=== PATIENT | male | born 1995 | race Caucasian/White ===

== ENCOUNTER 2016-07-05 00:30 | Emergency (ER) | payer OTHER ==
[~2016-07-05] VITALS: Ht 185.4 cm; Wt 94.6 kg
[2016-07-05 00:40] VITALS: BP 140/84; PULSE 74; RESP 16; TEMP 98.8; O2SAT 97
[2016-07-05 02:25] VITALS: BP 155/74; PULSE 70; RESP 18; TEMP 98.8; O2SAT 98
[2016-07-05] MEDS ORDERED: SODIUM CHLOR 0.9% 1000 ML INJ 1,000 ML IV ONE ×2 (04:11→04:15)
[2016-07-05] MEDS ORDERED: SODIUM CHLORIDE 0.9% FLUSH 5 ML FLUSH IVF PRN (04:15)
[2016-07-05] MEDS ORDERED: PANTOPRAZOLE SODIUM 40 MG VIAL IVP ONE (04:15)
[2016-07-05] MEDS ORDERED: ONDANSETRON HCL 4 MG/2 ML VIAL IVP ONE (04:15)
[2016-07-05 04:37] VITALS: BP 136/78; PULSE 72; RESP 18; O2SAT 97
[2016-07-05 04:50] LABS: BLOOD, URINE NEG (NEG); GLUCOSE,URINE NEG (NEG); KETONE, URINE TRACE mg/dL (NEG); NITRITE,URINE NEG (NEG); PH, URINE 8.5 (5.0-8.5)
[2016-07-05 04:52] LABS: CHLORIDE 102 MEQ/L (98-107); POTASSIUM 3.7 MEQ/L (3.5-5.1); SODIUM (NA) 141 MEQ/L (136-145)
[2016-07-05 04:56] LABS: ANION GAP 10 MEQ/L (5-15); BICARBONATE 28.9 MEQ/L (21.0-32.0); BLOOD UREA NITROGEN 8 MG/DL (7-18); MAGNESIUM 2.3 MG/DL (1.5-2.5)
[2016-07-05 04:59] LABS: ALT (GPT) 63 U/L (9-52); AST (GOT) 28 U/L (15-39); GLOMERULAR FILTRATION RATE 85 ML/MIN (>89)
[2016-07-05 05:00] LABS: TOTAL BILIRUBIN ADULT 0.6 MG/DL (0.2-1.0)
[2016-07-05 05:01] LABS: URINE COLOR YELLOW (YELLW/STRAW)
[2016-07-05 05:02] LABS: ALKALINE PHOSPHATASE 69 U/L (45-117); SQUAMOUS EPITHELIAL CELL URINE 0-5 /hpf (0-5); WBC, URINE 0-2 /hpf (0-5)
[2016-07-05 05:26] LABS: AUTOMATED NEUTROPHIL # 8.8 TH/MM3 (1.8-7.7); BASOPHIL % 0.2 % (0.0-2.0); EOSINOPHIL # 0.1 TH/MM3 (0-0.4); EOSINOPHIL % 1.2 % (0.0-4.0); HEMATOCRIT 52.1 % (39.0-51.0); LYMPH % 13.5 % (9.0-44.0); LYMPHOCYTE # 1.5 TH/MM3 (1.0-4.8); MEAN CELL VOLUME 91.9 FL (80.0-100.0); MEAN CORPUSCULAR HEMOGLOBIN 30.6 PG (27.0-34.0); MEAN CORPUSCULAR HGB CONC 33.3 % (32.0-36.0); MONO % 4.3 % (0.0-8.0); NEUT % 80.8 % (16.0-70.0); PLATELET COUNT 366 TH/MM3 (150-450); RED BLOOD COUNT 5.66 MIL/MM3 (4.50-5.90); RED CELL DISTRIBUTION WIDTH 12.4 % (11.6-17.2); WHITE BLOOD COUNT 10.9 TH/MM3 (4.0-11.0)
[2016-07-05 05:27] LABS: HEMO FLAGS DIFF FINAL
[2016-07-05 05:39] VITALS: BP 149/82; PULSE 74; RESP 18; O2SAT 98
[2016-07-05] MEDS ORDERED: ZOFR4TAB3 SL (05:50)
--- NOTE | 2016-07-05 05:53 | PD ---
HPI Chief Complaint: GI Complaint Time Seen by Provider: 04:11 Travel History International Travel<30 days: No Contact w/Intl Traveler<30days: No Traveled to known affect area: No History of Present Illness HPI 21-year-old male presents to the emergency department by private transportation for evaluation of possible alcohol intoxication. Patient states that [place] and on Monday had been drinking alcohol heavily [place] beach and slept for about 3 PM to 5 PM and upon awakening had multiple bouts of nonbilious nonbloody emesis. Due to the multiple episodes patient was concerned about being dehydrated or having alcohol toxicity. Patient denies any diarrhea. No melena hematochezia. Patient denies abdominal pain. Patient is unable to identify other exacerbating or alleviating factors. Patient reports he does not frequently drink alcohol heavily but due to being on vacation has consumed more alcohol than typical for him. Patient does admit to daily tobacco use. Patient denies substance use. Patient rates pain 0/10 in intensity. PFSH Past Medical History Narrative Medical Negative past medical history; hand surgery; occasional alcohol use, daily tobacco use; no substance use; nursing notes reviewed Medical History: Denies Significant Hx Diminished Hearing: No Tetanus Vaccination: Unknown Influenza Vaccination: No Past Surgical History Surgical History: No Previous Surgery Social History Alcohol Use: Yes Tobacco Use: Yes (1ppd) Substance Use: No Allergies-Medications (Allergen,Severity, Reaction): Coded Allergies: No Known Allergies (Unverified , 07/05/16) Reported Meds & Prescriptions Reported Meds & Active Scripts Active Zofran Odt (Ondansetron Odt) 4 Mg Tab 4 Mg SL Q6HR PRN Review of Systems Except as stated in HPI: all other systems reviewed are Neg General / Constitutional: No: Fever, Chills HENT: No: Congestion Cardiovascular: No: Chest Pain or Discomfort Respiratory: No: Shortness of Breath Gastrointestinal: Positive: Nausea, Vomiting, No: Diarrhea, Abdominal Pain, Hematemesis, Hematochezia, Loss of Appetite Genitourinary: No: Dysuria, Decreased Urinary Output Musculoskeletal: No: Myalgias, Arthralgias Skin: No Rash Neurologic: No: Weakness, Dizziness, Syncope Psychiatric: No: Anxiety Endocrine: No: Polyuria Hematologic/Lymphatic: No: Lymph Node Enlargement Physical Exam Narrative GENERAL: Well-developed well-nourished male in no acute distress no respiratory distress; GCS 15 SKIN: Warm and dry. HEAD: Normocephalic. EYES: No scleral icterus. No injection or drainage. NECK: Supple, trachea midline. No JVD or lymphadenopathy. CARDIOVASCULAR: Regular rate and rhythm without murmurs, gallops, or rubs. RESPIRATORY: Breath sounds equal bilaterally. No accessory muscle use. GASTROINTESTINAL: Abdomen soft, non-tender, nondistended. MUSCULOSKELETAL: No cyanosis, or edema. BACK: Nontender without obvious deformity. No CVA tenderness. Data Data Last Documented VS Vital Signs Date Time Temp Pulse Resp B/P Pulse Ox O2 Delivery O2 Flow Rate FiO2 07/05/16 06:12 92 16 164/78 98 07/05/16 05:39 Room Air 07/05/16 02:25 98.8 Orders Complete Blood Count With Diff (07/05/16 04:11) Comprehensive Metabolic Panel (07/05/16 04:11) Lipase (07/05/16 04:11) Abdomen, Flat & Upright (07/05/16 ) Iv Access Insert/Monitor (07/05/16 04:11) Ecg Monitoring (07/05/16 04:11) Oximetry (07/05/16 04:11) Ondansetron Inj (Zofran Inj) (07/05/16 04:15) Pantoprazole Inj (Protonix Inj) (07/05/16 04:15) Sodium Chlor 0.9% 1000 Ml Inj (Ns 1000 M (07/05/16 04:11) Sodium Chloride 0.9% Flush (Ns Flush) (07/05/16 04:15) Ua Includes Microscopic (07/05/16 04:11) Sodium Chlor 0.9% 1000 Ml Inj (Ns 1000 M (07/05/16 04:15) Alcohol (Ethanol) (07/05/16 04:11) Magnesium (Mg) (07/05/16 04:11) Labs Laboratory Tests Test 07/05/16 04:30 White Blood Count 10.9 TH/MM3 Red Blood Count 5.66 MIL/MM3 Hemoglobin 17.3 GM/DL Hematocrit 52.1 % Mean Corpuscular Volume 91.9 FL Mean Corpuscular Hemoglobin 30.6 PG Mean Corpuscular Hemoglobin 33.3 % Concent Red Cell Distribution Width 12.4 % Platelet Count 366 TH/MM3 Mean Platelet Volume 8.7 FL Neutrophils (%) (Auto) 80.8 % Lymphocytes (%) (Auto) 13.5 % Monocytes (%) (Auto) 4.3 % Eosinophils (%) (Auto) 1.2 % Basophils (%) (Auto) 0.2 % Neutrophils # (Auto) 8.8 TH/MM3 Lymphocytes # (Auto) 1.5 TH/MM3 Monocytes # (Auto) 0.5 TH/MM3 Eosinophils # (Auto) 0.1 TH/MM3 Basophils # (Auto) 0.0 TH/MM3 CBC Comment DIFF FINAL Differential Comment Urine Color YELLOW Urine Turbidity CLEAR Urine pH 8.5 Urine Specific [place] 1.019 Urine Protein TRACE mg/dL Urine Glucose (UA) NEG mg/dL Urine Ketones TRACE mg/dL Urine Occult Blood NEG Urine Nitrite NEG Urine Bilirubin NEG Urine Leukocyte Esterase NEG Urine WBC 0-2 /hpf Urine Squamous Epithelial 0-5 /hpf Cells Sodium Level 141 MEQ/L Potassium Level 3.7 MEQ/L Chloride Level 102 MEQ/L Carbon Dioxide Level 28.9 MEQ/L Anion Gap 10 MEQ/L Blood Urea Nitrogen 8 MG/DL Creatinine 1.10 MG/DL Estimat Glomerular Filtration 85 ML/MIN Rate Random Glucose 78 MG/DL Calcium Level 9.2 MG/DL Magnesium Level 2.3 MG/DL Total Bilirubin 0.6 MG/DL Aspartate Amino Transf 28 U/L (AST/SGOT) Alanine Aminotransferase 63 U/L (ALT/SGPT) Alkaline Phosphatase 69 U/L Total Protein 8.3 GM/DL Albumin 4.5 GM/DL Lipase 417 U/L Ethyl Alcohol Level 31 MG/DL [facility] Medical Decision Making Medical Screen Exam Complete: Yes Emergency Medical Condition: Yes Medical Record Reviewed: Yes Interpretation(s) CBC & BMP Diagram 07/05/16 04:30 Differential Diagnosis Vomiting, alcohol gastritis, pancreatitis, dehydration, electrolyte disturbance Narrative Course IV access obtained specimens collected and sent for resulting patient forensic examiner bolus of normal saline along with Zofran Protonix Patient administered additional liter of normal saline; patient refused x-ray of the abdomenflat and upright Patient resting comfortably labs resulted patient serum alcohol level XXXI lipase is mildly elevated 471 but patient again has a nontender abdomen and denies any abdominal pain; since administration of IV fluids and Zofran and there has been no nausea and no vomiting At 5:45 AM patient attempting trial of oral hydration and tolerating well Diagnosis Primary Impression: Gastritis Qualified Code: K29.20 - Acute alcoholic gastritis without hemorrhage Additional Impressions: Elevated lipase Alcohol use Referrals: Primary Care Physician call for appointment Patient Instructions: General Instructions Additional Instructions: Follow clear liquid diet for next 12-24 hours then advance as tolerated to bland /Alise diet and regular diet avoiding any alcoholic beverages Takes Zofran as prescribed as needed for nausea and/or vomiting Return to the emergency department for any concerns or change in condition May take acetaminophen/Tylenol as needed for fever 100.4F or greater May use [id number] Prilosec OTC daily per package directions 7 days Do not drink alcoholic beverages Follow-up with your primary care provider Med/Other Pt SpecificInfo: Prescription(s) given Scripts Ondansetron Odt (Zofran Odt)4 Mg Tab4 Mg SL Q6HR PRN (Nausea/Vomiting) #10 TAB Ref 0 Prov:Mohini Rao MD 07/05/16 Disposition: 01 DISCHARGE HOME Condition: Stable Mohini Rao MD Jul 05, 2016 05:53
[2016-07-05 06:12] VITALS: BP 164/78
== END 2016-07-05 06:13 | disposition home or self-care (01) ==
LOC: PHED 00:30 → PHEFT 06:13
DX: K29.20 Alcoholic gastritis without bleeding (principal); R74.8 Abnormal levels of other serum enzymes; F17.210 Nicotine dependence, cigarettes, uncomplicated
CPT/HCPCS: 80053; 80307; 81001; 83690; 83735; 85025; 96361; 96374; 96375; 99284; C9113; J2405; J7030